=== PATIENT | male | born 1980 | race Two or more races ===

== ENCOUNTER 2021-02-09 09:00 | Outpatient (CLI) | payer OTHER | END 2021-02-09 09:12 | disposition home or self-care (01) | LOC: PPH VACUNA 09:00 | DX: Z23 Encounter for immunization (principal) ==

== ENCOUNTER 2021-07-16 08:15 | Outpatient (CLI) | payer OTHER | END 2021-07-16 08:30 | disposition home or self-care (01) | LOC: PPH VACUNA 08:15 | PROVIDERS: ATTEND Emergency Medicine Pediatric Emergency Medicine | DX: Z23 Encounter for immunization (principal) ==

== ENCOUNTER 2025-02-20 18:21 | Emergency (ER) | payer OTHER ==
[~2025-02-20] VITALS: Ht 177.8 cm; Wt 122.5 kg
[2025-02-20] MEDS ORDERED: ZESTRIL20 MG PO (18:38)
[2025-02-20] MEDS ORDERED: LOSARTAN-HCTZ1 EAC1 (18:38)
[2025-02-20 18:41] VITALS: BP 134/76
[2025-02-20 20:02] LABS: BASO % 0.6 % (0.1-1.2); EOS # 0.14 (0.04-0.54); EOS % 1.2 % (0.7-7.0); HEMATOCRIT 46.2 % (40.1-51.0); HEMOGLOBIN 15.1 g/dL (13.7-17.5); LYMPH # 3.99 (1.18-3.74); LYMPH % 33.3 % (19.3-53.1); MEAN CORPUSCULAR HEMOGLOBIN 27.6 pg (25.6-32.2); MONO # 1.19 (0.24-0.82); MONO % 9.9 % (4.7-12.5); NEUT # 6.58 (1.56-6.13); NEUT % 54.7 % (34.0-71.1); PLATELET COUNT 178 K/uL (163-369); RED BLOOD COUNT 5.48 M/uL (4.63-6.08); RED CELL DISTRIBUTION WIDTH 12.1 % (11.6-14.4)
[2025-02-20 20:25] LABS: ALBUMIN 3.9 gm/dL (3.4-5.0); BILIRUBIN TOTAL 0.4 mg/dL (0.3-1.2); CALCIUM 9.4 mg/dL (8.5-10.1); CREATININE SERUM 1.32 mg/dL (0.70-1.30); GFR 58.65; GLOBULINA 3.6 G/DL (2.4-3.5); POTASSIUM 3.97 mEq/L (3.5-5.1); TOTAL PROTEIN 7.5 gm/dL (6.4-8.2)
[2025-02-20 20:42] LABS: PH,URINE 5.5 (5.0-8.0); URINE APPEARANCE Clear; URINE BILIRRUBIN Negative (NEGATIVE); URINE BLOOD Negative; URINE COLOR Yellow; URINE GLUCOSE Negative (NEGATIVE); URINE KETONE Negative (NEGATIVE); URINE LEUKOCYTE Negative; URINE NITRATE Negative; URINE PROTEIN Negative (NEGATIVE)
[2025-02-20 20:43] LABS: URINE BACTERIA 8.5 uL (0.0-1933)
[2025-02-20 20:48] LABS: URINE EPITHELIAL CELLS 0.3 uL (0.0-38.8); URINE RBC 1.1 uL (0.0-20.8); URINE WBC 1.7 uL (0.0-23.2)
[2025-02-20] MEDS ORDERED: KETOROLAC TROMETHAMINE 60 MG VIAL IM ONE ×2 (22:06→22:15)
[2025-02-20] MEDS ORDERED: ZITHROMAX200 MG PO (22:29)
[2025-02-20] MEDS ORDERED: IBUPROFEN800 MG PO (22:29)
[2025-02-20 22:50] VITALS: O2SAT 98
== END 2025-02-20 22:50 | disposition home or self-care (01) ==
LOC: ER 18:21
PROVIDERS: Preventive Medicine Public Health & General Preventive Medicine
DX: N50.819 Testicular pain, unspecified (principal); I10 Essential (primary) hypertension